=== PATIENT | male | born 2000 | race Caucasian/White ===

== ENCOUNTER 2024-06-30 11:02 | Emergency (ER) | payer OTHER, SELFPAY ==
--- NOTE | ~2024-06-30 | XR_ITS ---
EXAMINATION: XR CHEST CLINICAL INFORMATION: Shortness of breath for 2 weeks. COMPARISON: None available. TECHNIQUE: PA and lateral views of the chest were obtained. FINDINGS: No significant abnormality is noted involving the heart, lungs, mediastinum, bony thorax or soft tissues. XR/XR chest 2V IMPRESSION: Normal chest PA and lateral. Electronically signed by: August Couch MD 06/30/2024 12:37 PM EDT RP
[2024-06-30 11:19] VITALS: BP 130/91; PULSE 88; RESP 18; TEMP 36.9; O2SAT 96; BMI 29.5
--- NOTE | 2024-06-30 11:19 | ED_ITS ---
HPI - SOB/Dyspnea General Chief Complaint: Dyspnea Stated Complaint: sob Time Seen by Provider: 06/30/24 11:40 Source: patient Mode of arrival: ambulatory Limitations: no limitations History of Present Illness HPI Narrative: 24-year-old male with a past medical history of asthma to the emergency department with complaints a several week history of shortness of breath. He reports he has been using an albuterol inhaler with no relief symptoms. He reports increased work of breathing and cough, worse over the last several days. He denies any fevers or chills. He reports that he smokes marijuana, nightly, to help with sleep. He denies any tobacco use or environmental exposures although he does report that he uses different sprays at work but wears a mask typically. Pertinent positives and negatives discussed in HPI Related Data Previous Rx's ?Medication ?Instructions ?Recorded albuterol sulfate 90 mcg/actuation 2 inh inhalation Q4-6H PRN 06/30/24 breath activated powder inhaler shortness of breath or wheezing #1 ea prednisone 10 mg tablets in a dose 10 mg PO DIRECTED #21 ea 06/30/24 pack Allergies Allergy/AdvReac Type Severity Reaction Status Date / Time No Known Allergies Allergy Verified 06/30/24 11:22 Review of Systems Review of Systems: Yes all other systems are reviewed and are negative PMFSH Social History Social History Advance Directives: No Advance Directives Information Provided: No Physical Exam Vital Signs: Vital Signs: Last Vital Signs Temp 98.4 F 06/30/24 11:19 Pulse 80 06/30/24 13:24 Resp 22 H 06/30/24 13:24 BP 130/91 H 06/30/24 11:19 Pulse Ox 96 06/30/24 11:19 O2 Del Method Room Air 06/30/24 11:19 BMI result Body Mass Index 29.5 Nursing notes and vital signs reviewed. GENERAL APPEARANCE: A&0 x 4, generally well appearing, no acute distress HENMT: Normal to inspection, atraumatic, face symmetrical. Normal external ears, nose, and oropharynx clear. EYE: PERRLA, EOM intact, structures appear normal NECK: Supple without stiffness or restricted ROM. HEART: Normal rate and regular rhythm, normal S1/S2, no M/R/G LUNGS: Wheezing throughout, increased work of breathing. Able to speak in complete sentences. No crackles or rhonchi auscultated BACK: No CVAT, no obvious deformity EXTREMITIES: Moving all extremities without difficulty. Normal capillary refill. NEUROLOGICAL: Alert and oriented, moving all 4 extremities with equal strength. CN not formally tested but appearing grossly intact. Observed to ambulate with normal gait. Cognition normal SKIN: Warm and dry without any lesions, rash, or visible sores Course Course Course Narrative: This is a Rapid Medical Examination (RME) performed by Lidia Borrego PA-C in triage. Full HPI, ROS, assessment and treatment plan per primary provider in the Main ED. 24 yo male hx of asthma here for eval of SOB x2 wks, progressively worsening. now having chest pain assoc w/ cough. using inhaler at home without relief. negative covid at home. does not smoke tobacco. + no tripoding. audible wheezes. actively coughing. diffuse wheezes/ rhonchi. Plan: ekg, viral serology, CXR, ED bronch protocol Reevaluation(s) Reevaluation #1: Patient continues to be wheezy. Plan for additional albuterol treatment Time: 13:15 Reevaluation #2: On reassessment, lung sounds CTA and SpO2 96-97%. Patient reports significant relief of symptoms. Time: 14:15 Medications Administered Discontinued Medications Generic Name Dose Route Start Last Admin Trade Name Freq PRN Reason Stop Dose Admin Albuterol Sulfate 5 mg/ 7.5 mg 06/30/24 11:44 06/30/24 12:50 Albuterol Sulfate 2.5 mg INHALE 06/30/24 11:45 7.5 mg ONCE ONE Administration Albuterol Sulfate 5 mg/ 7.5 mg 06/30/24 13:19 06/30/24 13:23 Albuterol Sulfate 2.5 mg INHALE 06/30/24 13:20 7.5 mg ONCE ONE Administration Magnesium Sulfate 2 gm in 50 mls @ 25 mls/hr 06/30/24 11:48 06/30/24 12:01 Magnesium Sulfate/H2o IV 06/30/24 13:47 25 mls/hr ONCE ONE Administration Methylprednisolone Sodium Succinate 125 mg 06/30/24 11:44 06/30/24 12:01 Methylprednisolone Sod Succ 125 Mg/2 Ml Vial IVPUSH 06/30/24 11:45 125 mg ONCE ONE Administration Medical Decision Making Medical Decision Making MDM Narrative: Old records reviewed for previous imaging, lab studies, ECGs, and notes. Patient was assessed the emergency department with no acute distress or toxicity noted. Plan for nasal serology, chest x-ray, albuterol steroids, and magnesium for management of presumed asthma exacerbation. Nasal serology negative for COVID, flu, and RSV. Chest x-ray showing no evidence of acute infection, per my interpretation. Radiologist reports no significant abnormality noted of the heart, lungs, mediastinum, bony thorax, or soft tissues. Patient's symptoms are consistent with asthma exacerbation and after 2 albuterol treatments, Solu-Medrol, and magnesium infusion, patient reports significant relief of symptoms. Albuterol inhaler and course of steroids since patient's preferred pharmacy for further management. Patient educated to establish a primary care provider, as he states he does not have 1. Contact information for pulmonology provided for additional resources. Patient is safe for discharge at this time with plan for [id number] Tylenol and/or NSAID such as ibuprofen or naproxen for fever/discomfort with dosing as per packaging. HPI, PE, diagnostics, and plan discussed with patient and family with no unanswered questions at this time. Strict return precautions given to return to the emergency department with new, worsening, or concerning emergent symptoms. Recommended to follow-up with there primary care provider in 24-48 hours for further treatment and management. Differential Diagnosis Differential Diagnoses: The differential diagnosis associated with the presentation includes But not limited to asthma, viral syndrome, bronchitis, pneumonia, sepsis, malignancy Lab Data [facility] Lab Attestation statement: I reviewed the patient's lab results. Labs: Lab Results 06/30/24 Range/Units 12:57 Influenza Type A (PCR) NEGATIVE (Negative) Influenza Type B (PCR) NEGATIVE (Negative) RSV RNA Qual (PCR) NEGATIVE (Negative) SARS-CoV-2 RNA (RT-PCR) NEGATIVE (Negative) Independent Interpretation I performed an independent interpretation of an: Plain X-Ray Interpretation: As negative for acute infection Radiology Impression Discussion of test interpretation with radiology: I have reviewed the radiologist's reading. Prescription Management I considered prescription management with: Antibiotic Antibiotics were considered, however; no evidence of bacterial infection was identified at this time Chronic Conditions Asthma Discharge Plan Discharge Clinical Impression: Marijuana smoker Asthma with exacerbation Qualifiers: Asthma severity: unspecified severity Patient Disposition: Home, Self-Care Instructions: Asthma (ED), How to Use a Metered-Dose Inhaler (ED), Wheezing (ED), How Your Lungs Work (ED) Additional Instructions: Your nasal swab was negative for COVID, flu, and RSV. A chest x-ray was completed which showed no evidence of pneumonia. You were given 2 breathing treatments, steroids, and a magnesium supplement. Prescriptions for an inhaler and steroids were sent to your preferred pharmacy. Please use full course of steroids. It is important that you establish a primary care provider EXAMINATION: XR CHEST CLINICAL INFORMATION: Shortness of breath for 2 weeks. COMPARISON: None available. TECHNIQUE: PA and lateral views of the chest were obtained. FINDINGS: No significant abnormality is noted involving the heart, lungs, mediastinum, bony thorax or soft tissues. XR/XR chest 2V IMPRESSION: Normal chest PA and lateral. Prescriptions: New albuterol sulfate 90 mcg/actuation aerosol powdr breath activated 2 inh inhalation Q4-6H PRN (Reason: shortness of breath or wheezing) Qty: 1 1RF prednisone 10 mg tablets,dose pack 10 mg PO DIRECTED Qty: 21 0RF Rx Instructions: see taper instructions Referrals: [facility] [place] [facility] [Provider Group] [facility] [place] [facility] [place] [Provider Group] [facility] [place] [facility],[place] [Provider Group] Reginaldo Ray MD [Physician] - Stand Alone Forms: Work/School Release Print Language: Swiss
[2024-06-30 11:53] VITALS: PULSE 110; RESP 26; O2SAT 94
[2024-06-30] MEDS: methylPREDNISolone Sod Succ 125 MG/2 ML VIAL IVPUSH (12:01)
[2024-06-30] MEDS: Magnesium Sulfate/H2O 2 GM/50 ML PIGGYBACK IV (12:01)
[2024-06-30] MEDS: Albuterol Sulfate 5 MG, Albuterol Sulfate (0.083%) 2.5 MG 7.5 MG INHALE ×2 (12:50→13:23)
--- NOTE | 2024-06-30 13:16 | ED_ITS ---
<Statement entered by Sujatha Baeza NP - 06/30/24 13:39> document in error. See other ED note from 06/30/24 HPI - SOB/Dyspnea General Chief Complaint: Dyspnea Stated Complaint: sob Time Seen by Provider: 06/30/24 11:40 Related Data Previous Rx's ?Medication ?Instructions ?Recorded albuterol sulfate 90 mcg/actuation 2 inh inhalation Q4-6H PRN 06/30/24 breath activated powder inhaler shortness of breath or wheezing #1 ea prednisone 10 mg tablets in a dose 10 mg PO DIRECTED #21 ea 06/30/24 pack Allergies Allergy/AdvReac Type Severity Reaction Status Date / Time No Known Allergies Allergy Verified 06/30/24 11:22 [facility] Social History Social History Advance Directives: No Advance Directives Information Provided: No Physical Exam Vital Signs: Vital Signs: Last Vital Signs Temp 98.4 F 06/30/24 11:19 Pulse 80 06/30/24 13:24 Resp 22 H 06/30/24 13:24 BP 130/91 H 06/30/24 11:19 Pulse Ox 96 06/30/24 11:19 O2 Del Method Room Air 06/30/24 11:19 BMI result Body Mass Index 29.5 Medications Administered Discontinued Medications Generic Name Dose Route Start Last Admin Trade Name Freq PRN Reason Stop Dose Admin Albuterol Sulfate 5 mg/ 7.5 mg 06/30/24 11:44 06/30/24 12:50 Albuterol Sulfate 2.5 mg INHALE 06/30/24 11:45 7.5 mg ONCE ONE Administration Albuterol Sulfate 5 mg/ 7.5 mg 06/30/24 13:19 06/30/24 13:23 Albuterol Sulfate 2.5 mg INHALE 06/30/24 13:20 7.5 mg ONCE ONE Administration Magnesium Sulfate 2 gm in 50 mls @ 25 mls/hr 06/30/24 11:48 06/30/24 12:01 Magnesium Sulfate/H2o IV 06/30/24 13:47 25 mls/hr ONCE ONE Administration Methylprednisolone Sodium Succinate 125 mg 06/30/24 11:44 06/30/24 12:01 Methylprednisolone Sod Succ 125 Mg/2 Ml Vial IVPUSH 06/30/24 11:45 125 mg ONCE ONE Administration Medical Decision Making Lab Data Labs: Lab Results 06/30/24 Range/Units 12:57 Influenza Type A (PCR) NEGATIVE (Negative) Influenza Type B (PCR) NEGATIVE (Negative) RSV RNA Qual (PCR) NEGATIVE (Negative) SARS-CoV-2 RNA (RT-PCR) NEGATIVE (Negative) Discharge Plan Discharge Clinical Impression: Asthma with exacerbation Patient Disposition: Home, Self-Care Instructions: Asthma (ED), How to Use a Metered-Dose Inhaler (ED), Wheezing (ED), How Your Lungs Work (ED) Additional Instructions: Your nasal swab was negative for COVID, flu, and RSV. A chest x-ray was completed which showed no evidence of pneumonia. You were given 2 breathing treatments, steroids, and a magnesium supplement. Prescriptions for an inhaler and steroids were sent to your preferred pharmacy. Please use full course of steroids. It is important that you establish a primary care provider EXAMINATION: XR CHEST CLINICAL INFORMATION: Shortness of breath for 2 weeks. COMPARISON: None available. TECHNIQUE: PA and lateral views of the chest were obtained. FINDINGS: No significant abnormality is noted involving the heart, lungs, mediastinum, bony thorax or soft tissues. XR/XR chest 2V IMPRESSION: Normal chest PA and lateral. Prescriptions: New albuterol sulfate 90 mcg/actuation aerosol powdr breath activated 2 inh inhalation Q4-6H PRN (Reason: shortness of breath or wheezing) Qty: 1 1RF prednisone 10 mg tablets,dose pack 10 mg PO DIRECTED Qty: 21 0RF Rx Instructions: see taper instructions [place] [facility] [place] [facility] [place]Provider Group] [facility] [place] [facility]Provider Group] Reginaldo Ray MD [Physician] - Stand Alone Forms: Work/School Release Print Language: Bulgarian
[2024-06-30 13:24] VITALS: PULSE 80; RESP 22; O2SAT 96
[2024-06-30 13:41] LABS: Influenza A PCR NEGATIVE (Negative); Influenza B PCR NEGATIVE (Negative); Resp Syncy Virus RNA Qual PCR NEGATIVE (Negative); SARS COV2 PCR INHOUSE NEGATIVE (Negative)
[2024-06-30 14:19] VITALS: BP 141/80; PULSE 92; RESP 18; O2SAT 95
[2024-06-30 14:26] VITALS: BP 141/80; PULSE 92; RESP 18; TEMP 36.9; O2SAT 95
== END 2024-06-30 14:27 | disposition home or self-care (01) ==
PROVIDERS: Physician Assistant Medical; Emergency Provider Student in an Organized Health Care Education/Training Program
DX: J45.901 Unspecified asthma with (acute) exacerbation (principal); R06.02 Shortness of breath; Z03.818 Encounter for observation for suspected exposure to other biological agents ruled out
CPT/HCPCS: 0241U; 71046; 94640; 96365; 96366; 96375; 99284; J2919; J3475

== ENCOUNTER 2024-07-09 23:29 | Emergency (ER) | payer OTHER, SELFPAY ==
--- NOTE | ~2024-07-09 | XR_ITS ---
EXAMINATION: XR CHEST CLINICAL INFORMATION: Shortness of breath. COMPARISON: June 30, 2024 TECHNIQUE: 2 views of the chest were obtained. FINDINGS: No significant abnormality is noted involving the heart, lungs, mediastinum, bony thorax or soft tissues. XR/XR chest 2V IMPRESSION: Unremarkable examination. Electronically signed by: Abiel Anders MD 07/10/2024 12:35 AM EDT
[2024-07-09 23:32] VITALS: BP 147/90; PULSE 92; RESP 20; TEMP 36.5; O2SAT 96; BMI 32.5
[2024-07-10 00:18] LABS: Influenza A PCR NEGATIVE (Negative); Influenza B PCR NEGATIVE (Negative); Resp Syncy Virus RNA Qual PCR NEGATIVE (Negative); SARS COV2 PCR INHOUSE NEGATIVE (Negative)
[2024-07-10] MEDS: Albuterol Sulfate 2.5 MG, Albuterol/Iprat 2.5/0.5MG 3 ML 3 ML INHALE (01:34)
[2024-07-10 01:35] VITALS: PULSE 104; RESP 20; O2SAT 94
[2024-07-10 01:49] VITALS: PULSE 103; RESP 20; O2SAT 94
[2024-07-10] MEDS: Albuterol Sulfate 2.5 MG, Albuterol Sulfate (0.083%) 2.5 MG 5 MG INHALE (01:49)
--- NOTE | 2024-07-10 03:54 | ED.SOB ---
HPI - SOB/Dyspnea General Chief Complaint: Dyspnea Stated Complaint: SOB Time Seen by Provider: 07/10/24 03:10 Source: patient Mode of arrival: ambulatory Limitations: no limitations History of Present Illness ED Provider: paige BRITO Narrative: Patient's history of asthma was seen here last week for same was given prednisone comes here as having still shortness a breath which is getting worse for last 2 days no fever no chills does have a dry cough Related Data Previous Rx's ?Medication ?Instructions ?Recorded albuterol sulfate 90 mcg/actuation 2 inh inhalation Q4-6H PRN 06/30/24 breath activated powder inhaler shortness of breath or wheezing #1 ea prednisone 10 mg tablets in a dose 10 mg PO DIRECTED #21 ea 06/30/24 pack albuterol sulfate 90 mcg/actuation 2 puff inhalation Q6H PRN 07/10/24 aerosol inhaler shortness of breath or wheezing #8.5 grams prednisone 20 mg tablet 40 mg (2 x 20 mg) PO DAILY #10 tabs 07/10/24 Allergies Allergy/AdvReac Type Severity Reaction Status Date / Time No Known Allergies Allergy Verified 07/09/24 23:34 Review of Systems Review of Systems: Yes all other systems are reviewed and are negative PMFSH Social History Social History Alcohol intake: never Smoked in Last 30 Days: Yes Use of substances other than those prescribed or required for medical reasons: No Advance Directives: No Advance Directives Information Provided: Yes Do you have a plan to hurt others: No Plan Physical Exam Vital Signs: Vital Signs: Last Vital Signs Temp 98.2 F 07/10/24 06:15 Pulse 95 07/10/24 06:15 Resp 20 07/10/24 06:15 BP 141/83 H 07/10/24 06:15 Pulse Ox 96 07/10/24 06:15 O2 Del Method Room Air 07/10/24 06:15 BMI result Body Mass Index 32.5 Appearance: Alert. Oriented X3. Moderate respiratory distress Eyes: No pallor or icterus ENT: Pharynx normal. Oral Mucosa moist Neck: Normal inspection. Neck supple. CVS: Normal heart rate and rhythm. Pulses normal. Respiratory: Moderate respiratory distress. Equal air entry bilateral, bilateral wheezing no rales Abdomen: Soft and nontender. Bowel sounds are present, no mass palpable, no CVA tenderness Skin: Skin warm and dry. Normal skin color. Normal skin turgor. Extremities: No lower extremity edema. No calf tenderness Neuro: Oriented X 3. No motor deficit. Medications Administered Discontinued Medications Generic Name Dose Route Start Last Admin Trade Name Freq PRN Reason Stop Dose Admin Albuterol Sulfate 2.5 mg/ 5 mg 07/10/24 01:45 07/10/24 01:49 Albuterol Sulfate 2.5 mg INHALE 07/10/24 01:46 5 mg ONCE ONE Administration Albuterol Sulfate 7.5 mg 07/10/24 03:52 07/10/24 05:36 Albuterol Sulfate (0.083%) 2.5 Mg/3 Ml Vial.Neb INHALE 07/10/24 03:53 7.5 mg ONCE ONE Administration Albuterol Sulfate 2.5 mg/ 0 mg 07/10/24 01:26 07/10/24 01:34 Albuterol/Ipratropium 3 ml INHALE 07/10/24 01:27 1 dose ONCE ONE Administration Dexamethasone Sodium Phosphate 10 mg 07/10/24 03:52 07/10/24 04:06 Dexamethasone Sod Phosphate 10 Mg/Ml Vial IVPUSH 07/10/24 03:53 10 mg ONCE ONE Administration Magnesium Sulfate 2 gm in 50 mls @ 150 mls/hr 07/10/24 03:52 07/10/24 04:06 Magnesium Sulfate/H2o IV 07/10/24 04:11 150 mls/hr ONCE ONE Administration Medical Decision Making Medical Decision Making [facility] Narrative: Patient's asthma improved after magnesium IV Solu-Medrol and 2 continuous nebulizing treatment will give another course of prednisone saturating 96% at room air at the time of discharge Lab Data [facility] Lab Attestation statement: I reviewed the patient's lab results. Labs: Lab Results 07/09/24 Range/Units 23:37 Influenza Type A (PCR) NEGATIVE (Negative) Influenza Type B (PCR) NEGATIVE (Negative) RSV RNA Qual (PCR) NEGATIVE (Negative) SARS-CoV-2 RNA (RT-PCR) NEGATIVE (Negative) Discharge Plan Discharge Clinical Impression: Asthma with exacerbation Patient Disposition: Home, Self-Care Instructions: Asthma (ED) Additional Instructions: Use inhaler as advised Prednisone as prescribed Follow the PCP as needed Prescriptions: New prednisone 20 mg tablet 40 mg PO DAILY Qty: 10 0RF albuterol sulfate 90 mcg/actuation HFA aerosol inhaler 2 puff inhalation Q6H PRN (Reason: shortness of breath or wheezing) Qty: 8.5 0RF No Action albuterol sulfate 90 mcg/actuation aerosol powdr breath activated 2 inh inhalation Q4-6H PRN (Reason: shortness of breath or wheezing) Qty: 1 1RF prednisone 10 mg tablets,dose pack 10 mg PO DIRECTED Qty: 21 0RF Rx Instructions: see taper instructions Interventions: ED Discharge Assessment Last Done: 07/10/24 06:15 Discharge Date/Time: 07/10/24 06:17 Print Language: [place]ib[place]ian
[2024-07-10] MEDS: dexAMETHasone sod phosphate 10 MG/ML VIAL IVPUSH (04:06)
[2024-07-10] MEDS: Magnesium Sulfate/H2O 2 GM/50 ML PIGGYBACK IV (04:06)
[2024-07-10 05:31] VITALS: BP 141/83; PULSE 95; RESP 20; TEMP 36.8; O2SAT 96
[2024-07-10] MEDS: Albuterol Sulfate (0.083%) 2.5 MG/3 ML VIAL.NEB 7.5 MG INHALE (05:36)
[2024-07-10 05:37] VITALS: PULSE 95; RESP 20; O2SAT 93
[2024-07-10 06:15] VITALS: BP 141/83; PULSE 95; RESP 20; TEMP 36.8; O2SAT 96
== END 2024-07-10 06:17 | disposition home or self-care (01) ==
PROVIDERS: Emergency Provider Internal Medicine
DX: J45.901 Unspecified asthma with (acute) exacerbation (principal); R06.02 Shortness of breath; Z03.818 Encounter for observation for suspected exposure to other biological agents ruled out
CPT/HCPCS: 0241U; 71046; 94640; 96374; 99284; 99285; J1100; J3475